=== PATIENT | male | born 1960 | race Caucasian/White ===

== ENCOUNTER 2019-02-19 08:31 | Inpatient (IN) | payer MEDICAID ==
[~2019-02-19] VITALS: Ht 177.8 cm; Wt 101.1 kg
[2019-02-19] MEDS ORDERED: ONDANSETRON 2MG/ML, 2ML ONE (08:58)
[2019-02-19] MEDS ORDERED: LORazepam 2 MG/ML, 1ML ONE ×3 (08:58→12:38)
[2019-02-19] MEDS: LORazepam 2 MG/ML, 1ML IVPush PRN ×9 (09:10→21:41)
[2019-02-19] MEDS ORDERED: ONDANSETRON 2MG/ML, 2ML IVPush ONE (09:30)
[2019-02-19] MEDS ORDERED: THIAMINE 100 MG in SODIUM CHLORIDE 0.9% 50 ML IVPB ONE (09:30)
[2019-02-19] MEDS ORDERED: SODIUM CHLORIDE FLUSH 10ML SYR IVF ONE (09:30)
[2019-02-19] MEDS ORDERED: SODIUM CHLORIDE 0.9% 1,000ML IVBOLUS ONE ×2 (09:30→11:00)
[2019-02-19 10:02] LABS: INTERNATIONAL NORMALIZED RATIO 1.02 (0.93-1.1); PROTHROMBIN TIME 10.7 Seconds (9.6-11.5)
[2019-02-19 10:05] LABS: ALANINE AMINOTRANSFERASE 115 U/L (12-78); ALBUMIN 3.9 g/dL (3.4-5.0); ANION GAP 17 mmol/L (5-15); CALCIUM 8.7 mg/dL (8.5-10.1); CHLORIDE 99 mmol/L (98-107); CREATININE 1.01 mg/dL (0.7-1.3)
[2019-02-19 10:07] LABS: ALKALINE PHOSPHATASE 175 U/L (45-117); BILIRUBIN,TOTAL 1.3 mg/dL (0.2-1.0); TOTAL PROTEIN 8.1 g/dL (6.4-8.2)
[2019-02-19 10:16] LABS: MEAN CORPUSCULAR HEMOGLOBIN 34.3 pg (27.5-34.5); MEAN CORPUSCULAR HGB CONC 33.8 g/dL (33.2-36.2); MEAN CORPUSCULAR VOLUME 101.3 fL (81-97); MEAN PLATELET VOLUME 7.4 fL (7.4-10.4); PLATELET COUNT 68 x10^3/uL (130-400); RED BLOOD COUNT 4.35 x10^6/uL (4.38-5.82); RED CELL DISTRIBUTION WIDTH 14.2 % (9.4-14.8)
[2019-02-19 10:18] LABS: BASOPHILS # (AUTO) 0.01 x10^3/uL (0-0.1); BASOPHILS % (AUTO) 0 % (0-1); EOSINOPHILS # (AUTO) 0.01 x10^3/uL (0-0.4); EOSINOPHILS % (AUTO) 0 % (1-7); LYMPHOCYTES % (AUTO) 6 % (22-44); MD SCAN; MONOCYTES % (AUTO) 4 % (2-9); NEUTROPHILS # (AUTO) 4.57 x10^3/uL (1.8-6.8); NEUTROPHILS % (AUTO) 90 % (42-75)
[2019-02-19] MEDS ORDERED: SODIUM CHLORIDE 0.9% 1,000 ML IV ONE (11:00)
--- NOTE | 2019-02-19 11:06 | NUR ---
LATE NOTE ENTRY FOR 0852: 58 y.o. pt presents to ED by EMS after pt had two witnessed seizures, one at home with spouse, and one with EMS. Pt has oral trauma to tongue that occured during second seizure. Pt recieved 2mg of Medazolam IM with EMS. Pt is post-ictyl and is AOX4, ON 2L NC oxygen to maintain oxygen saturation above 90%. Pt is tachycardic in 120's and hypertensive, please see triage vital signs. Per EMS, "patient drinks 5 tall can (beers) at night, last drink was at 6 pm last night. Patient typically wakes up in the morning and starts drinking beers, and drinks all day." Pt's FSBG with EMS was 178. Pt has 18g right AC PIV placed by EMS that is clean, dry, intact, and flushes. Pt denies cp, sob, diarrhea. Pt connected to NIBP, continous pulse ox, and cafeteria monitor. Both bed rails are up for safety measures, SI precautions in place, and call light within reach. Head of bed is at 45 degree angle, suciton set up at bedside.
[2019-02-19 11:18] LABS: ACETONE, SERUM Trace (10mg/dL) mg/dL (Negative)
[2019-02-19 12:31] LABS: MICROSCOPIC AUTO
[2019-02-19 12:32] LABS: CULTURE INDICATED? NO
[2019-02-19] MEDS ORDERED: CHLORDIAZEPOXIDE 25 MG CAPSULE ONE (12:56)
[2019-02-19] MEDS ORDERED: ONDANSETRON ODT 4 MG PO PRN (13:00)
[2019-02-19] MEDS ORDERED: POLYETHYLENE GLYCOL 17 GM PACKET PO PRN (13:00)
[2019-02-19] MEDS ORDERED: ENOXAPARIN 40 MG/0.4 ML SQ SCH (13:00)
[2019-02-19] MEDS ORDERED: ONDANSETRON 2MG/ML, 2ML IVPush PRN (13:00)
[2019-02-19] MEDS ORDERED: LABETALOL 5MG/ML, 20ML IVPush PRN (13:00)
[2019-02-19] MEDS ORDERED: DEXTROSE 4 GM TAB.CHEW PO PRN (13:30)
[2019-02-19] MEDS ORDERED: LORazepam 2 MG/ML, 1ML IV PRN ×5 (13:30)
[2019-02-19] MEDS ORDERED: DEXTROSE 50%, 50ML SYRINGE IVPush PRN (13:30)
[2019-02-19] MEDS ORDERED: CHLORDIAZEPOXIDE 25 MG CAPSULE PO PRN (13:30)
[2019-02-19] MEDS ORDERED: LORazepam 1MG TABLET PO PRN ×4 (13:30)
[2019-02-19] MEDS ORDERED: GLUCAGON 1 MG IM PRN (13:30)
[2019-02-19] MEDS ORDERED: LORazepam 0.5MG TABLET PO PRN (13:30)
[2019-02-19 13:32] LABS: FREE T4 (FREE THYROXINE) 0.84 ng/dL (0.76-1.46)
[2019-02-19] MEDS ORDERED: ENOXAPARIN 40 MG/0.4 ML ONE (13:35)
[2019-02-19 13:55] LABS: HEMOGLOBIN A1C 5.5 % (4.2-6.3)
--- NOTE | 2019-02-19 14:03 | NUR ---
Provided report to CAROLINA Baires. All questions answered. Pt ready to transfer to floor from ED.
[2019-02-19] MEDS: CHLORDIAZEPOXIDE 25 MG CAPSULE PO SCH ×2 (14:46→20:29)
[2019-02-19] MEDS: POTASSIUM CHLORIDE 20 MEQ, MAGNESIUM SULFATE 1 GM, FOLIC ACID 1 MG, THIAMINE 200 MG, MV... IV SCH (15:26)
[2019-02-19] MEDS: PANTOPRAZOLE 40 MG IV IVPush SCH (20:27)
[2019-02-19] MEDS: SODIUM CHLORIDE FLUSH 10ML SYR IVF SCH (20:28)
[2019-02-19] MEDS: SODIUM CHLORIDE 0.45% 1,000 ML IV SCH (23:35)
[2019-02-20] MEDS: LORazepam 2 MG/ML, 1ML IVPush PRN ×2 (02:44→06:05)
[2019-02-20 04:53] LABS: ALANINE AMINOTRANSFERASE 69 U/L (12-78); ALBUMIN 2.9 g/dL (3.4-5.0); ANION GAP 7 mmol/L (5-15); CALCIUM 7.4 mg/dL (8.5-10.1); CHLORIDE 106 mmol/L (98-107); CREATININE 0.64 mg/dL (0.7-1.3)
[2019-02-20 05:04] LABS: ALKALINE PHOSPHATASE 113 U/L (45-117); BILIRUBIN,TOTAL 1.3 mg/dL (0.2-1.0); TOTAL PROTEIN 6.4 g/dL (6.4-8.2)
[2019-02-20 05:20] VITALS: BP 160/94
[2019-02-20 06:10] LABS: MEAN CORPUSCULAR HEMOGLOBIN 33.2 pg (27.5-34.5); MEAN CORPUSCULAR HGB CONC 32.5 g/dL (33.2-36.2); MEAN CORPUSCULAR VOLUME 102.2 fL (81-97); MEAN PLATELET VOLUME 7.9 fL (7.4-10.4); RED CELL DISTRIBUTION WIDTH 14.3 % (9.4-14.8)
[2019-02-20 06:16] LABS: PLATELET COUNT 48 x10^3/uL (130-400)
[2019-02-20] MEDS ORDERED: POTASSIUM PHOSPHATE 44 MEQ in SODIUM CHLORIDE 0.9% 500 ML IV ONE (07:00)
[2019-02-20] MEDS: SODIUM CHLORIDE 0.45% 1,000 ML IV SCH ×2 (07:03→08:15)
[2019-02-20 07:04] LABS: MD YES
[2019-02-20 07:07] LABS: BAND#(MANUAL) 0.03 x10^3/uL; BANDS%(MANUAL) 1 % (0-7); EOS#(MANUAL) 0.03 x10^3/uL (0.0-0.4); EOS% (MANUAL) 1 % (1-7); LYMPH#(MANUAL) 0.63 x10^3/uL (1-3.4); LYMPHS% (MANUAL) 25 % (22-44); MONOS#(MANUAL) 0.15 x10^3/uL (0.3-2.7); MONOS% (MANUAL) 6 % (2-9); SEG#(MANUAL) 1.68 x10^3/uL (1.8-6.8); SEGS% (MANUAL) 67 % (42-75)
[2019-02-20 07:09] LABS: <PLATELET ESTIMATE> DECREASED; <PLT MORPHOLOGY> NORMAL PLT MORPH
[2019-02-20] MEDS: SENNA/DOCUSATE TABLET PO SCH (08:21)
[2019-02-20] MEDS: SODIUM CHLORIDE FLUSH 10ML SYR IVF SCH ×2 (08:22→19:52)
[2019-02-20] MEDS: POTASSIUM CHLORIDE 20 MEQ TAB.ER.PRT PO SCH ×2 (08:25→16:28)
[2019-02-20] MEDS: CHLORDIAZEPOXIDE 25 MG CAPSULE PO SCH ×3 (08:25→19:51)
[2019-02-20] MEDS: PANTOPRAZOLE 40 MG IV IVPush SCH ×2 (08:25→19:51)
[2019-02-20 13:59] LABS: CLOSTRIDIUM DIFFICILE ANTIGEN NEGATIVE; CLOSTRIDIUM DIFFICILE TOXIN NEGATIVE (Negative)
[2019-02-20] MEDS: POTASSIUM CHLORIDE 20 MEQ, MAGNESIUM SULFATE 1 GM, FOLIC ACID 1 MG, THIAMINE 200 MG, MV... IV SCH (16:28)
[2019-02-20 19:48] VITALS: BP 123/77
[2019-02-21] MEDS: SODIUM CHLORIDE 0.45% 1,000 ML IV SCH ×2 (02:05→10:58)
[2019-02-21 03:28] VITALS: BP 129/82
[2019-02-21 06:16] LABS: ANION GAP 7 mmol/L (5-15); CALCIUM 7.8 mg/dL (8.5-10.1); CHLORIDE 108 mmol/L (98-107)
[2019-02-21 06:38] LABS: MEAN CORPUSCULAR HEMOGLOBIN 33.9 pg (27.5-34.5); MEAN CORPUSCULAR HGB CONC 33.4 g/dL (33.2-36.2); MEAN CORPUSCULAR VOLUME 101.4 fL (81-97); MEAN PLATELET VOLUME 8.4 fL (7.4-10.4); RED BLOOD COUNT 3.43 x10^6/uL (4.38-5.82); RED CELL DISTRIBUTION WIDTH 13.7 % (9.4-14.8)
[2019-02-21 06:40] LABS: PLATELET COUNT 46 x10^3/uL (130-400)
[2019-02-21 06:41] LABS: BASOPHILS # (AUTO) 0.01 x10^3/uL (0-0.1); BASOPHILS % (AUTO) 0 % (0-1); EOSINOPHILS # (AUTO) 0.05 x10^3/uL (0-0.4); EOSINOPHILS % (AUTO) 2 % (1-7); LYMPHOCYTES # (AUTO) 0.51 x10^3/uL (1-3.4); LYMPHOCYTES % (AUTO) 19 % (22-44); MD SCAN; MONOCYTES # (AUTO) 0.24 x10^3/uL (0.2-0.8); MONOCYTES % (AUTO) 9 % (2-9); NEUTROPHILS # (AUTO) 1.92 x10^3/uL (1.8-6.8); NEUTROPHILS % (AUTO) 70 % (42-75)
[2019-02-21 08:00] VITALS: BP 152/89
[2019-02-21] MEDS: SENNA/DOCUSATE TABLET PO SCH (09:00)
[2019-02-21] MEDS: SODIUM CHLORIDE FLUSH 10ML SYR IVF SCH ×2 (09:00→20:58)
[2019-02-21] MEDS: PANTOPRAZOLE 40 MG IV IVPush SCH ×2 (10:55→23:10)
[2019-02-21] MEDS: CHLORDIAZEPOXIDE 25 MG CAPSULE PO SCH ×3 (10:55→20:58)
[2019-02-21 14:19] VITALS: BP 156/88
[2019-02-21] MEDS: POTASSIUM CHLORIDE 20 MEQ, MAGNESIUM SULFATE 1 GM, FOLIC ACID 1 MG, THIAMINE 200 MG, MV... IV SCH (16:32)
[2019-02-21 17:43] VITALS: BP 156/88
[2019-02-21 19:15] VITALS: BP 135/85
[2019-02-22 01:15] VITALS: BP 153/89
[2019-02-22] MEDS: SODIUM CHLORIDE 0.45% 1,000 ML IV SCH ×4 (01:42→23:40)
[2019-02-22] MEDS: LORazepam 2 MG/ML, 1ML IVPush PRN ×2 (01:52→04:17)
[2019-02-22 06:05] LABS: MEAN CORPUSCULAR HEMOGLOBIN 34.2 pg (27.5-34.5); MEAN CORPUSCULAR HGB CONC 33.6 g/dL (33.2-36.2); MEAN CORPUSCULAR VOLUME 101.6 fL (81-97); MEAN PLATELET VOLUME 8.1 fL (7.4-10.4); PLATELET COUNT 51 x10^3/uL (130-400); RED CELL DISTRIBUTION WIDTH 13.6 % (9.4-14.8)
[2019-02-22 06:13] LABS: ANION GAP 8 mmol/L (5-15); CALCIUM 7.8 mg/dL (8.5-10.1); CHLORIDE 109 mmol/L (98-107); CREATININE 0.62 mg/dL (0.7-1.3)
[2019-02-22 06:14] LABS: ALANINE AMINOTRANSFERASE 56 U/L (12-78); ALBUMIN 2.8 g/dL (3.4-5.0)
[2019-02-22 06:16] LABS: ALKALINE PHOSPHATASE 107 U/L (45-117); BILIRUBIN,TOTAL 1.3 mg/dL (0.2-1.0); TOTAL PROTEIN 6.2 g/dL (6.4-8.2)
[2019-02-22 06:20] LABS: BASOPHILS # (AUTO) 0.02 x10^3/uL (0-0.1); BASOPHILS % (AUTO) 1 % (0-1); EOSINOPHILS # (AUTO) 0.06 x10^3/uL (0-0.4); EOSINOPHILS % (AUTO) 3 % (1-7); LYMPHOCYTES # (AUTO) 0.53 x10^3/uL (1-3.4); LYMPHOCYTES % (AUTO) 23 % (22-44); MD SCAN; MONOCYTES # (AUTO) 0.29 x10^3/uL (0.2-0.8); MONOCYTES % (AUTO) 13 % (2-9); NEUTROPHILS # (AUTO) 1.37 x10^3/uL (1.8-6.8); NEUTROPHILS % (AUTO) 61 % (42-75)
[2019-02-22] MEDS: SENNA/DOCUSATE TABLET PO SCH (08:17)
[2019-02-22] MEDS: CHLORDIAZEPOXIDE 25 MG CAPSULE PO SCH ×2 (08:17→20:38)
[2019-02-22] MEDS: SODIUM CHLORIDE FLUSH 10ML SYR IVF SCH ×2 (08:20→20:38)
[2019-02-22 08:35] VITALS: BP 134/87
[2019-02-22] MEDS ORDERED: LORazepam 0.5MG TABLET PO PRN (10:30)
[2019-02-22] MEDS ORDERED: LORazepam 1MG TABLET PO PRN ×4 (10:30)
[2019-02-22] MEDS ORDERED: LORazepam 2 MG/ML, 1ML IV PRN ×5 (10:30)
[2019-02-22] MEDS: PANTOPRAZOLE 40 MG IV IVPush SCH ×2 (11:00→23:39)
[2019-02-22 13:53] VITALS: BP 127/79
[2019-02-22] MEDS ORDERED: OCTREOTIDE 500 MCG in SODIUM CHLORIDE 0.9% 249 ML IV SCH (14:30)
[2019-02-22] MEDS ORDERED: CEFTRIAXONE 500 MG in DEXTROSE 5% 50 ML IV SCH (14:30)
[2019-02-22] MEDS: POTASSIUM CHLORIDE 20 MEQ, MAGNESIUM SULFATE 1 GM, FOLIC ACID 1 MG, THIAMINE 200 MG, MV... IV SCH (16:10)
[2019-02-22 19:22] VITALS: BP 156/91
[2019-02-23 04:57] VITALS: BP 150/84
[2019-02-23 05:35] LABS: ANION GAP 6 mmol/L (5-15); CALCIUM 8.2 mg/dL (8.5-10.1); CHLORIDE 112 mmol/L (98-107)
[2019-02-23 05:38] LABS: CREATININE 0.73 mg/dL (0.7-1.3)
[2019-02-23 08:00] VITALS: BP 175/101
[2019-02-23] MEDS: SODIUM CHLORIDE 0.45% 1,000 ML IV SCH ×2 (08:16→17:00)
[2019-02-23] MEDS: SODIUM CHLORIDE FLUSH 10ML SYR IVF SCH ×2 (08:16→20:51)
[2019-02-23] MEDS: CHLORDIAZEPOXIDE 25 MG CAPSULE PO SCH ×2 (08:19→20:50)
[2019-02-23] MEDS: SENNA/DOCUSATE TABLET PO SCH (08:20)
[2019-02-23] MEDS ORDERED: ALBUTEROL SULFATE 2.5 MG/3 ML NPPB PRN (11:00)
[2019-02-23] MEDS ORDERED: HALOPERIDOL 5 MG/ML IV PRN (11:00)
[2019-02-23] MEDS ORDERED: PROMETHAZINE 25 MG/ML, 1ML IV PRN (11:00)
[2019-02-23] MEDS ORDERED: FENTANYL PF 100 MCG/2ML IV PRN (11:00)
[2019-02-23] MEDS ORDERED: DIAZEPAM 5 MG/ML, 2ML IVPush PRN (11:00)
[2019-02-23] MEDS ORDERED: HYDROmorphone 2 MG/ML, 1ML IVPush PRN (11:00)
[2019-02-23] MEDS ORDERED: LABETALOL 5MG/ML, 20ML IV PRN (11:00)
[2019-02-23] MEDS ORDERED: ONDANSETRON 2MG/ML, 2ML IV PRN (11:00)
[2019-02-23] MEDS ORDERED: ONDANSETRON ODT 8 MG PO PRN (11:00)
[2019-02-23] MEDS ORDERED: EPHEDRINE 50 MG/ML, 1ML IVPush PRN (11:00)
[2019-02-23] MEDS ORDERED: MEPERIDINE/PF 25MG/0.5ML IVPush PRN (11:00)
[2019-02-23] MEDS ORDERED: OXYcodone 5 MG/5 ML ORAL.SOL UDC PO PRN (11:00)
[2019-02-23] MEDS ORDERED: hydrALAzine 20 MG/ML, 1ML IV PRN (11:00)
[2019-02-23] MEDS ORDERED: MIDAZOLAM 1 MG/ML, 2ML IV PRN (11:00)
[2019-02-23] MEDS ORDERED: MORPHINE SULFATE 4 MG/ML, 1ML IVPush PRN (11:00)
[2019-02-23] MEDS ORDERED: PROMETHAZINE 12.5 MG SUPP PR PRN (11:00)
[2019-02-23] MEDS ORDERED: PROPOFOL 10 MG/ML, 50ML ONE (11:13)
[2019-02-23 12:42] LABS: ALANINE AMINOTRANSFERASE 60 U/L (12-78); ALBUMIN 2.8 g/dL (3.4-5.0); ANION GAP 8 mmol/L (5-15); CALCIUM 8.1 mg/dL (8.5-10.1); CHLORIDE 112 mmol/L (98-107); CREATININE 0.71 mg/dL (0.7-1.3)
[2019-02-23 12:44] LABS: ALKALINE PHOSPHATASE 106 U/L (45-117); TOTAL PROTEIN 6.3 g/dL (6.4-8.2)
[2019-02-23 13:43] LABS: MEAN CORPUSCULAR HEMOGLOBIN 34.2 pg (27.5-34.5); MEAN CORPUSCULAR HGB CONC 33.7 g/dL (33.2-36.2); MEAN CORPUSCULAR VOLUME 101.6 fL (81-97); RED BLOOD COUNT 3.34 x10^6/uL (4.38-5.82); RED CELL DISTRIBUTION WIDTH 13.2 % (9.4-14.8)
[2019-02-23 13:48] LABS: BASOPHILS # (AUTO) 0.02 x10^3/uL (0-0.1); BASOPHILS % (AUTO) 1 % (0-1); EOSINOPHILS # (AUTO) 0.07 x10^3/uL (0-0.4); EOSINOPHILS % (AUTO) 4 % (1-7); LYMPHOCYTES # (AUTO) 0.55 x10^3/uL (1-3.4); LYMPHOCYTES % (AUTO) 28 % (22-44); MD SCAN; MEAN PLATELET VOLUME 8.2 fL (7.4-10.4); MONOCYTES # (AUTO) 0.27 x10^3/uL (0.2-0.8); MONOCYTES % (AUTO) 14 % (2-9); NEUTROPHILS # (AUTO) 1.07 x10^3/uL (1.8-6.8); NEUTROPHILS % (AUTO) 54 % (42-75); PLATELET COUNT 75 x10^3/uL (130-400)
[2019-02-23 14:00] VITALS: BP 144/83
[2019-02-23] MEDS: POTASSIUM CHLORIDE 20 MEQ, MAGNESIUM SULFATE 1 GM, FOLIC ACID 1 MG, THIAMINE 200 MG, MV... IV SCH (16:29)
[2019-02-23 20:11] VITALS: BP 149/87
[2019-02-24 00:31] VITALS: BP 154/87
[2019-02-24] MEDS: SODIUM CHLORIDE 0.45% 1,000 ML IV SCH ×2 (00:36→08:25)
[2019-02-24 05:16] LABS: MEAN CORPUSCULAR HEMOGLOBIN 35.2 pg (27.5-34.5); MEAN CORPUSCULAR HGB CONC 34.1 g/dL (33.2-36.2); MEAN CORPUSCULAR VOLUME 103.2 fL (81-97); MEAN PLATELET VOLUME 8.1 fL (7.4-10.4); PLATELET COUNT 98 x10^3/uL (130-400); RED BLOOD COUNT 3.24 x10^6/uL (4.38-5.82); RED CELL DISTRIBUTION WIDTH 13.6 % (9.4-14.8)
[2019-02-24 05:23] LABS: CHLORIDE 112 mmol/L (98-107)
[2019-02-24 05:30] LABS: ALANINE AMINOTRANSFERASE 50 U/L (12-78); ALBUMIN 2.7 g/dL (3.4-5.0); ALKALINE PHOSPHATASE 112 U/L (45-117); ANION GAP 5 mmol/L (5-15); BILIRUBIN,TOTAL 0.7 mg/dL (0.2-1.0); CALCIUM 8.1 mg/dL (8.5-10.1); CREATININE 0.79 mg/dL (0.7-1.3); TOTAL PROTEIN 6.2 g/dL (6.4-8.2)
[2019-02-24 05:42] LABS: BASOPHILS # (AUTO) 0.02 x10^3/uL (0-0.1); BASOPHILS % (AUTO) 1 % (0-1); EOSINOPHILS # (AUTO) 0.07 x10^3/uL (0-0.4); EOSINOPHILS % (AUTO) 3 % (1-7); LYMPHOCYTES # (AUTO) 0.75 x10^3/uL (1-3.4); LYMPHOCYTES % (AUTO) 30 % (22-44); MD SCAN; MONOCYTES # (AUTO) 0.44 x10^3/uL (0.2-0.8); MONOCYTES % (AUTO) 18 % (2-9); NEUTROPHILS # (AUTO) 1.19 x10^3/uL (1.8-6.8); NEUTROPHILS % (AUTO) 48 % (42-75)
[2019-02-24 07:25] VITALS: BP 175/94
[2019-02-24] MEDS: SENNA/DOCUSATE TABLET PO SCH (08:25)
[2019-02-24] MEDS: CHLORDIAZEPOXIDE 25 MG CAPSULE PO SCH (08:25)
[2019-02-24] MEDS: SODIUM CHLORIDE FLUSH 10ML SYR IVF SCH ×2 (08:26→21:00)
[2019-02-24 17:07] VITALS: BP 162/83
[2019-02-24] MEDS: POTASSIUM CHLORIDE 20 MEQ, MAGNESIUM SULFATE 1 GM, FOLIC ACID 1 MG, THIAMINE 200 MG, MV... IV SCH (18:40)
[2019-02-24 20:23] VITALS: BP 126/71
[2019-02-25 01:32] VITALS: BP 151/78
[2019-02-25] MEDS: SODIUM CHLORIDE 0.45% 1,000 ML IV SCH ×3 (02:40→18:43)
[2019-02-25 06:40] VITALS: BP 155/66
[2019-02-25 07:08] LABS: MEAN CORPUSCULAR HEMOGLOBIN 34.9 pg (27.5-34.5); MEAN CORPUSCULAR HGB CONC 33.9 g/dL (33.2-36.2); MEAN CORPUSCULAR VOLUME 102.7 fL (81-97); MEAN PLATELET VOLUME 8.5 fL (7.4-10.4); PLATELET COUNT 119 x10^3/uL (130-400); RED BLOOD COUNT 3.31 x10^6/uL (4.38-5.82); RED CELL DISTRIBUTION WIDTH 13.1 % (9.4-14.8)
[2019-02-25 07:11] LABS: ALBUMIN 2.7 g/dL (3.4-5.0); CHLORIDE 109 mmol/L (98-107)
[2019-02-25 07:16] LABS: ALANINE AMINOTRANSFERASE 46 U/L (12-78); ALKALINE PHOSPHATASE 104 U/L (45-117); ANION GAP 8 mmol/L (5-15); BILIRUBIN,TOTAL 0.6 mg/dL (0.2-1.0); CALCIUM 7.9 mg/dL (8.5-10.1); CREATININE 0.73 mg/dL (0.7-1.3); TOTAL PROTEIN 6.3 g/dL (6.4-8.2)
[2019-02-25 08:00] LABS: BASOPHILS # (AUTO) 0.03 x10^3/uL (0-0.1); BASOPHILS % (AUTO) 1 % (0-1); EOSINOPHILS # (AUTO) 0.07 x10^3/uL (0-0.4); EOSINOPHILS % (AUTO) 3 % (1-7); LYMPHOCYTES # (AUTO) 0.74 x10^3/uL (1-3.4); LYMPHOCYTES % (AUTO) 26 % (22-44); MD SCAN; MONOCYTES # (AUTO) 0.53 x10^3/uL (0.2-0.8); MONOCYTES % (AUTO) 19 % (2-9); NEUTROPHILS # (AUTO) 1.44 x10^3/uL (1.8-6.8); NEUTROPHILS % (AUTO) 51 % (42-75)
[2019-02-25] MEDS: SODIUM CHLORIDE FLUSH 10ML SYR IVF SCH ×2 (08:32→20:55)
[2019-02-25] MEDS: SENNA/DOCUSATE TABLET PO SCH (08:33)
[2019-02-25] MEDS ORDERED: CHLORDIAZEPOXIDE 25 MG CAPSULE PO SCH (09:00)
[2019-02-25] MEDS: FOLIC ACID 1 MG TABLET PO SCH (12:59)
[2019-02-25] MEDS: THIAMINE 100MG TABLET PO SCH (12:59)
[2019-02-25 14:44] VITALS: BP 117/72
[2019-02-25 19:35] VITALS: BP 145/79
[2019-02-26 01:12] VITALS: BP 128/71
[2019-02-26] MEDS: SODIUM CHLORIDE 0.45% 1,000 ML IV SCH ×2 (02:06→10:26)
[2019-02-26 05:54] LABS: ALANINE AMINOTRANSFERASE 41 U/L (12-78); ALBUMIN 2.9 g/dL (3.4-5.0); ANION GAP 7 mmol/L (5-15); CALCIUM 8.2 mg/dL (8.5-10.1); CHLORIDE 105 mmol/L (98-107); CREATININE 0.78 mg/dL (0.7-1.3)
[2019-02-26 05:56] LABS: ALKALINE PHOSPHATASE 108 U/L (45-117); BILIRUBIN,TOTAL 0.8 mg/dL (0.2-1.0); TOTAL PROTEIN 6.7 g/dL (6.4-8.2)
[2019-02-26 06:19] LABS: MEAN PLATELET VOLUME 8.4 fL (7.4-10.4); PLATELET COUNT 148 x10^3/uL (130-400); RED BLOOD COUNT 3.33 x10^6/uL (4.38-5.82); RED CELL DISTRIBUTION WIDTH 13.2 % (9.4-14.8)
[2019-02-26 06:57] LABS: MD YES
[2019-02-26 07:02] LABS: <PLATELET ESTIMATE> ADEQUATE; <PLT MORPHOLOGY> NORMAL PLT MORPH; BAND#(MANUAL) 0.03 x10^3/uL; BANDS%(MANUAL) 1 % (0-7); BASOS#(MANUAL) 0.03 x10^3/uL (0-0.1); BASOS% (MANUAL) 1 % (0-1); EOS#(MANUAL) 0.06 x10^3/uL (0.0-0.4); EOS% (MANUAL) 2 % (1-7); LYMPH#(MANUAL) 1.25 x10^3/uL (1-3.4); LYMPHS% (MANUAL) 39 % (22-44); MONOS#(MANUAL) 0.35 x10^3/uL (0.3-2.7); MONOS% (MANUAL) 11 % (2-9); SEG#(MANUAL) 1.47 x10^3/uL (1.8-6.8); SEGS% (MANUAL) 46 % (42-75)
[2019-02-26 07:03] LABS: POLYCHROMASIA 1+
[2019-02-26] MEDS ORDERED: FOLI-17 PO (07:45)
[2019-02-26] MEDS ORDERED: PANT40TA5 PO (07:45)
[2019-02-26] MEDS ORDERED: THIA100T67 PO (07:45)
[2019-02-26] MEDS: SODIUM CHLORIDE FLUSH 10ML SYR IVF SCH ×2 (08:27→21:00)
[2019-02-26] MEDS: FOLIC ACID 1 MG TABLET PO SCH (08:28)
[2019-02-26] MEDS: THIAMINE 100MG TABLET PO SCH (08:29)
[2019-02-26] MEDS: SENNA/DOCUSATE TABLET PO SCH (08:29)
[2019-02-26 08:33] VITALS: BP 141/77
[2019-02-26 12:55] LABS: MICROSCOPIC NOT IND
[2019-02-26 13:01] LABS: CULTURE INDICATED? NO
[2019-02-26 14:23] VITALS: BP 123/70
[2019-02-26] MEDS ORDERED: ACETAMINOPHEN 325 MG TABLET PO PRN (17:00)
[2019-02-26] MEDS ORDERED: LIDOCAINE-MPF 1%, 5ML ONE (17:03)
[2019-02-26 19:00] VITALS: BP 103/65
[2019-02-27] MEDS ORDERED: methylPREDNISolone SOD SUCC 125 MG/2 ML IVPush SCH
[2019-02-27] MEDS: PANTOPROZOLE 40MG TABLET PO SCH ×3 (00:15→21:39)
[2019-02-27 01:23] VITALS: BP 106/65
[2019-02-27] MEDS: THIAMINE 100MG TABLET PO SCH (08:03)
[2019-02-27] MEDS: SENNA/DOCUSATE TABLET PO SCH (08:03)
[2019-02-27] MEDS: FOLIC ACID 1 MG TABLET PO SCH (08:03)
[2019-02-27] MEDS: SODIUM CHLORIDE FLUSH 10ML SYR IVF SCH ×2 (08:04→21:40)
[2019-02-27 09:32] VITALS: BP 124/71
[2019-02-27 15:03] VITALS: BP 118/72
[2019-02-27] MEDS: HEPARIN 5,000 UNITS/ML, 1ML SQ SCH (16:20)
[2019-02-27 18:48] VITALS: BP 119/74
[2019-02-28 02:31] VITALS: BP 110/65
[2019-02-28] MEDS: HEPARIN 5,000 UNITS/ML, 1ML SQ SCH (04:05)
[2019-02-28 06:20] LABS: BASOPHILS # (AUTO) 0.04 x10^3/uL (0-0.1); BASOPHILS % (AUTO) 1 % (0-1); EOSINOPHILS # (AUTO) 0.02 x10^3/uL (0-0.4); EOSINOPHILS % (AUTO) 1 % (1-7); LYMPHOCYTES # (AUTO) 1.06 x10^3/uL (1-3.4); LYMPHOCYTES % (AUTO) 25 % (22-44); MD NO; MEAN CORPUSCULAR HEMOGLOBIN 33.8 pg (27.5-34.5); MEAN CORPUSCULAR HGB CONC 33.5 g/dL (33.2-36.2); MEAN CORPUSCULAR VOLUME 100.8 fL (81-97); MEAN PLATELET VOLUME 8.4 fL (7.4-10.4); MONOCYTES # (AUTO) 0.71 x10^3/uL (0.2-0.8); MONOCYTES % (AUTO) 17 % (2-9); NEUTROPHILS # (AUTO) 2.39 x10^3/uL (1.8-6.8); NEUTROPHILS % (AUTO) 57 % (42-75); PLATELET COUNT 205 x10^3/uL (130-400); RED BLOOD COUNT 3.39 x10^6/uL (4.38-5.82)
[2019-02-28 06:21] LABS: CHLORIDE 109 mmol/L (98-107)
[2019-02-28 06:27] LABS: ANION GAP 6 mmol/L (5-15); CALCIUM 8.9 mg/dL (8.5-10.1); CREATININE 0.85 mg/dL (0.7-1.3)
[2019-02-28 06:56] VITALS: BP 114/55
[2019-02-28] MEDS ORDERED: POTASSIUM CHLORIDE 20 MEQ TAB.ER.PRT PO SCH (07:00)
[2019-02-28] MEDS: PANTOPROZOLE 40MG TABLET PO SCH (07:59)
[2019-02-28] MEDS: SENNA/DOCUSATE TABLET PO SCH (07:59)
[2019-02-28] MEDS: FOLIC ACID 1 MG TABLET PO SCH (08:00)
[2019-02-28] MEDS: THIAMINE 100MG TABLET PO SCH (08:00)
[2019-02-28] MEDS: SODIUM CHLORIDE FLUSH 10ML SYR IVF SCH (09:00)
[2019-02-28] MEDS ORDERED: PRED-402 PO (14:37)
== END 2019-02-28 17:02 | disposition home or self-care (01) | DRG 432 ==
LOC: EDBD 08:31 → ED 11:22 → EDIP 11:58 → CCU 13:47 → 3NE 02-20 12:40 → DCLOUNGE 02-28 16:40
PROVIDERS: ADMIT Internal Medicine; ATTEND Internal Medicine
PROC: 0DJ08ZZ Inspection of Upper Intestinal Tract, Via Natural or Artificial Opening Endoscopic (ICD-10-PCS; principal; 2019-02-23 10:00)
PROC: 0S9C3ZZ Drainage of Right Knee Joint, Percutaneous Approach (ICD-10-PCS; 2019-02-26)
DX: K70.40 Alcoholic hepatic failure without coma (principal); K29.81 Duodenitis with bleeding; E87.2 Acidosis; D62 Acute posthemorrhagic anemia; F10.231 Alcohol dependence with withdrawal delirium; D69.59 Other secondary thrombocytopenia; D70.9 Neutropenia, unspecified; D75.89 Other specified diseases of blood and blood-forming organs; E11.65 Type 2 diabetes mellitus with hyperglycemia; E78.5 Hyperlipidemia, unspecified; E11.40 Type 2 diabetes mellitus with diabetic neuropathy, unspecified; I10 Essential (primary) hypertension; K31.9 Disease of stomach and duodenum, unspecified; K59.00 Constipation, unspecified; K70.10 Alcoholic hepatitis without ascites; K76.0 Fatty (change of) liver, not elsewhere classified; M10.9 Gout, unspecified; Z91.030 Bee allergy status; R56.9 Unspecified convulsions; S01.512A Laceration without foreign body of oral cavity, initial encounter; S40.212A Abrasion of left shoulder, initial encounter; Y90.1 Blood alcohol level of 20-39 mg/100 ml
CPT/HCPCS: 36415; 73564; 84145; 87338; 99291; 99292; J7121; 20611; 70450; 71045; 76700; 80048; 80053; 80307; 81001; 81003; 82010; 82140; 82550; 83036; 83605; 83690; 83735; 84100; 84439; 84443; 84550; 85014; 85018; 85025; 85610; 85730; 85810; 87040; 87070; 87081; 87205; 87324; 89050; 89060; 93005; 93970; 96365; 96375; 96376; G0378; J0696; J1644; J1650; J2354; J2405; J2704; J3411; J3475; J3480; C9113; J2060; J7030; J7040; J7050; J7512